=== PATIENT | male | born 1985 | race Caucasian/White ===

== ENCOUNTER 2023-05-04 08:17 | Outpatient (REF) | payer MEDICAID, SELFPAY ==
[2023-05-04 14:14] LABS: Appearance Urine Clear; Color Urine Dark Yellow; Glucose Urine UA Negative (Negative); Leukocyte Esterase Urine Negative (Negative); Nitrite Urine Negative (Negative); PH 5.5 (5.0-9.0); Specific Gravity - Urine >= 1.030 (1.005-1.025); Urine Blood Negative (Negative); Urine Ketones Trace mg/dL (Negative); Urine Protein Negative (Neg-Trace)
[2023-05-04 14:17] LABS: Bacteria Urine None Seen (None Seen); Hyaline Casts Urine 0-2 /LPF (0-2); RBC Urine 0-2 /HPF (0-2); Squamous Epithelial Cell Urine 0-2 /HPF (0-2); WBC Urine 0-5 /HPF (0-5)
[2023-05-04 14:18] LABS: MANUAL DIFF FLAG NO
[2023-05-04 14:22] LABS: Basophils Percent Auto 0.4 % (0-2); Eosinophils Absolute Auto 0.1 X10*3/uL (0.0-0.4); Eosinophils Percent Auto 2.9 % (0-4); Hematocrit 39.8 % (42.0-52.0); Hemoglobin 13.4 g/dl (14.0-18.0); Imm Gran Abs Auto 0.01 X10*3/uL (0.00-0.03); Imm Gran Pct Auto 0.2 % (0.0-0.4); Lymphocytes Absolute Auto 1.1 X10*3/uL (1.2-4.9); Lymphocytes Percent Auto 22.1 % (20-40); Mean Corpuscular HGB Conc 33.7 g/dl (31.0-36.0); Mean Corpuscular Hemoglobin 31.1 pg (27.0-33.0); Mean Corpuscular Volume 92.3 fL (80.0-98.0); Mean Platelet Volume 9.3 fL (9.4-12.4); Monocytes Absolute Auto 0.6 X10*3/uL (0.1-1.2); Monocytes Percent Auto 11.8 % (2-11); Neutrophils Percent Auto 62.6 % (45-73); Platelet Count 263 X10*3/uL (160-400); Red Blood Count 4.31 X10*6/uL (4.60-5.80); Red Cell Distribution Width 11.9 % (11.0-16.0); White Blood Count 4.9 X10*3/uL (4.8-10.8)
[2023-05-04 15:14] LABS: Anion Gap 14 (12-20); TSH reflex Free T4 1.43 uIU/mL (0.32-4.0)
[2023-05-04 15:19] LABS: Alanine Aminotransferase 18 U/L (0-40); Albumin Level 4.2 g/dL (3.5-5.0); Alkaline Phosphatase 70 U/L (39-117); Aspartate Amino Transferase 15 U/L (5-37); Bilirubin Total 0.5 mg/dL (0.0-1.0); Blood Urea Nitrogen 16 mg/dL (9-16); Calcium 9.5 mg/dL (8.4-10.2); Carbon Dioxide 24 mmol/L (22-29); Chloride 107 mmol/L (96-108); Cholesterol 135 mg/dL (<200); Estimated Glomerular Filt Rate > 60; Glucose Random 113 mg/dL (60-115); HDL Cholesterol 35 mg/dL (>40); LDL Cholesterol Calculated 91 mg/dL (<100); Potassium 3.7 mmol/L (3.3-5.1); Sodium 141 mmol/L (135-145); Total Protein 7.2 g/dL (6.5-8.0); Triglycerides 45 mg/dL (<150)
[2023-05-04 16:30] LABS: CT PCR NOT DETECTED (Not Detect.); NG PCR NOT DETECTED (Not Detect.)
[2023-05-05 04:20] LABS: Syphilis Screen Nonreactive (Nonreactive)
[2023-05-05 04:34] LABS: ~HepC Num1 0.17 S/CO (0.00-0.79); ~Hepatitis C Antibody Nonreactive (Nonreactive)
[2023-05-07 10:59] LABS: HIV RNA PCR Qn Copies Not Detected Copies/mL; HIV RNA PCR Qn Log Copies Not Detected Log cps/mL
== END 2023-05-04 08:18 | disposition home or self-care (01) ==
LOC: HO.CHCLDS 08:17
PROVIDERS: Visit Provider Internal Medicine
DX: E11.9 Type 2 diabetes mellitus without complications (principal); Z79.4 Long term (current) use of insulin
CPT/HCPCS: 0353U; 36415; 80053; 80061; 81001; 84443; 85025; 86780; 86803; 87536; 87900

== ENCOUNTER 2023-06-03 09:36 | Outpatient (REF) | payer MEDICAID, SELFPAY ==
[2023-06-03 15:38] LABS: Creatinine Urine 123.85 mg/dL; Microalbum/Creatinine Ratio Ur 4.8 ug/mg cr (<30)
== END 2023-06-03 09:37 | disposition home or self-care (01) ==
LOC: HO.CHCLDS 09:36
PROVIDERS: Visit Provider Internal Medicine
DX: E11.9 Type 2 diabetes mellitus without complications (principal); Z79.4 Long term (current) use of insulin
CPT/HCPCS: 82043; 82570

== ENCOUNTER 2023-06-17 09:12 | Emergency (ER) | payer MEDICAID, SELFPAY ==
[2023-06-17 10:01] VITALS: BP 150/90; PULSE 79; RESP 16; TEMP 35.6; O2SAT 98; BMI 28.6
[2023-06-17] MEDS: Ondansetron ODT 4 MG TAB.RAPDIS TRANSLINGU (10:07)
[2023-06-17 10:12] LABS: Glucose, Whole Blood 230 mg/dL (60-115)
[2023-06-17 10:18] LABS: MANUAL DIFF FLAG NO
[2023-06-17 10:21] LABS: Basophils Absolute Auto 0.1 X10*3/uL (0.0-0.2); Basophils Percent Auto 0.3 % (0-2); Eosinophils Absolute Auto 0.1 X10*3/uL (0.0-0.4); Eosinophils Percent Auto 0.5 % (0-4); Hematocrit 51.2 % (42.0-52.0); Hemoglobin 17.9 g/dl (14.0-18.0); Imm Gran Abs Auto 0.07 X10*3/uL (0.00-0.03); Imm Gran Pct Auto 0.5 % (0.0-0.4); Lymphocytes Absolute Auto 1.3 X10*3/uL (1.2-4.9); Lymphocytes Percent Auto 8.8 % (20-40); Mean Corpuscular Hemoglobin 31.4 pg (27.0-33.0); Mean Corpuscular Volume 89.8 fL (80.0-98.0); Mean Platelet Volume 8.9 fL (9.4-12.4); Monocytes Absolute Auto 0.6 X10*3/uL (0.1-1.2); Monocytes Percent Auto 3.8 % (2-11); Neutrophils Absolute Auto 13.1 x10*3/uL (2.0-8.3); Neutrophils Percent Auto 86.1 % (45-73); Platelet Count 236 X10*3/uL (160-400); Red Cell Distribution Width 11.7 % (11.0-16.0); White Blood Count 15.3 X10*3/uL (4.8-10.8)
[2023-06-17 10:46] LABS: Alanine Aminotransferase 21 U/L (0-40); Albumin Level 5.2 g/dL (3.5-5.0); Alkaline Phosphatase 80 U/L (39-117); Anion Gap 11 (12-20); Bilirubin Direct 0.2 mg/dL (0.0-0.5); Bilirubin Total 0.4 mg/dL (0.0-1.0); Blood Urea Nitrogen 18 mg/dL (9-16); Calcium 10.3 mg/dL (8.4-10.2); Carbon Dioxide 28 mmol/L (22-29); Chloride 105 mmol/L (96-108); Creatinine Clr Calc Pharmacy 105.7; Estimated Glomerular Filt Rate > 60; Glucose Random 244 mg/dL (60-115); Lipase 26 U/L (8-78); Potassium 5.4 mmol/L (3.3-5.1); Sodium 139 mmol/L (135-145); Total Protein 8.5 g/dL (6.5-8.0)
[2023-06-17 11:05] LABS: Aspartate Amino Transferase 15 U/L (5-37)
[2023-06-17 11:59] LABS: Beta-Hydroxybutyrate 0.13 mmol/L (0.02-0.27)
[2023-06-17 12:27] LABS: Influenza A PCR NEGATIVE (Negative); Influenza B PCR NEGATIVE (Negative); Resp Syncy Virus RNA Qual PCR NEGATIVE (Negative); SARS COV2 PCR INHOUSE NEGATIVE (Negative)
[2023-06-17 13:16] VITALS: BP 131/80; PULSE 68; RESP 16; TEMP 36.4; O2SAT 99
[2023-06-17] MEDS: 0.9 % Sodium Chloride 1,000 ML 999 ML IV (13:22)
[2023-06-17 13:32] LABS: Glucose, Whole Blood 107 mg/dL (60-115)
--- NOTE | 2023-06-17 13:48 | PC.NURSE ---
Pressure bag added to IV fluids per proivder request.
--- NOTE | 2023-06-17 13:50 | ED_ITS ---
HPI - Nausea/Vomiting/Diarrhea General Chief complaint: Abdominal Pain Stated complaint: N/D/V Time Seen by Provider: 06/17/23 13:06 Source: patient Mode of arrival: ambulatory History of Present Illness HPI Narrative: 37-year-old male who is a diabetic presents with 2 days of nausea, vomiting, crampy abdominal discomfort after having eaten questionably cooked chicken. He otherwise denies any sick contacts/sore throat/ear pain. Related Data Previous Rx's ?Medication ?Instructions ?Recorded ondansetron 4 mg disintegrating 4 mg PO Q8H PRN nausea and 06/17/23 tablet vomiting 4 days #7 tabs Allergies Allergy/AdvReac Type Severity Reaction Status Date / Time bee pollen [BEE STINGS] Allergy Unknown SWELLING Verified 06/17/23 10:04 BEE STINGS Allergy Unknown Swelling Uncoded 06/17/23 10:04 Review of Systems 2 Review of Systems: Pertinent positives and negatives as stated in HPI PMFSH Past Medical History Source: nursing notes reviewed Social History Social History Alcohol intake: former Smoked in Last 30 Days: Yes Substance Use Type: Marijuana Substance Use Frequency: Occasionally Advance Directives: No Advance Directives Information Provided: No Physical Exam 2 Vital Signs: Vital Signs: Last Vital Signs Temp 97.5 F 06/17/23 13:16 Pulse 68 06/17/23 13:16 Resp 16 06/17/23 13:16 BP 131/80 06/17/23 13:16 Pulse Ox 99 06/17/23 13:16 O2 Del Method Room Air 06/17/23 13:16 BMI result Body Mass Index 28.6 VITAL SIGNS: Reviewed. GENERAL: Well developed, well nourished, in no acute distress. HEAD: Normocephalic/atraumatic EYES: PERRLA, EOMI EARS: Ext canals without abnormality NOSE: Nares patent bilateral OROPHARYNX: no oral lesions noted, posterior pharynx clear and non-erythematous without noted tonsillar enlargement/erythema/exudates, dry mucosa NECK: Supple, no adenopathy LUNGS: Normal breath sounds. No adventitious sounds or accessory muscle use. SpO2<99> CARDIOVASCULAR: Regular rate and rhythm without noted murmurs ABDOMEN: Soft, non-tender, non-distended with bowel sounds. MUSCULOSKELETAL: No tenderness, deformities, or effusions noted on gross inspection. EXTREMITIES: No cyanosis, clubbing or edema. SKIN: Inspection of the skin reveals no rashes NEUROLOGIC: Alert and oriented x 4. Strength and sensation to light touch were grossly intact x 4. Medications Administered Discontinued Medications Generic Name Dose Route Start Last Admin Trade Name Freq PRN Reason Stop Dose Admin Sodium Chloride 1,000 mls @ 999 mls/hr 06/17/23 13:15 06/17/23 14:22 Ns IV 06/17/23 14:15 Infused .Q1H1M JOSE LUIS Infusion Ondansetron HCl 4 mg 06/17/23 10:05 06/17/23 10:07 Ondansetron Odt 4 Mg Tab.Rapdis TRANSLINGU 06/17/23 10:06 4 mg ONCE ONE Administration Medical Decision Making Medical Decision Making [facility] Narrative: 37-year-old male with history and clinical presentation, DDX: Food poisoning, viral gastroenteritis, dehydration, no clinical suspicion for HHS/DKA I reviewed all investigations and hematologic indices demonstrates a noninfectious leukocytosis without anemia or thrombocytopenia. My interpretation is that patient's lab work overall appears to be hemoconcentrated likely secondary to component of dehydration. Chemistries indices initially demonstrated an elevated potassium level but no VANESSA there is noted hyperglycemia without evidence of DKA or HHS. Beta hydroxybutyrate not elevated. Repeat chemistries demonstrate resolution of potassium level after 1 L of IV fluids and antiemetics. 1554: Patient re-evaluated and feeling much better and ready to be discharged. Unable to obtain stool sample. Differential Diagnosis Differential Diagnoses: The differential diagnosis associated with the presentation includes Please see the discussion above Admission/Observation Consideration of admission/observation: Escalation of care including admission/observation considered Please see the discussion above Lab Data [facility] Lab Attestation statement: I reviewed the patient's lab results. Please see the discussion above 06/17/23 10:13 06/17/23 15:06 Labs: Lab Results 06/17/23 06/17/23 06/17/23 Range/Units 10:09 10:13 11:29 WBC 15.3 H (4.8-10.8) X10*3/uL RBC 5.70 D (4.60-5.80) X10*6/uL Hgb 17.9 D (14.0-18.0) g/dl Hct 51.2 D (42.0-52.0) % MCV 89.8 (80.0-98.0) fL MCH 31.4 (27.0-33.0) pg MCHC 35.0 (31.0-36.0) g/dl RDW 11.7 (11.0-16.0) % Plt Count 236 (160-400) X10*3/uL MPV 8.9 L (9.4-12.4) fL Immature Gran % (Auto) 0.5 H (0.0-0.4) % Neut % (Auto) 86.1 H (45-73) % Lymph % (Auto) 8.8 L (20-40) % [place] % (Auto) 3.8 (2-11) % Eos % (Auto) 0.5 (0-4) % Baso % (Auto) 0.3 (0-2) % Lymph # (Auto) 1.3 (1.2-4.9) X10*3/uL [place] # (Auto) 0.6 (0.1-1.2) X10*3/uL Eos # (Auto) 0.1 (0.0-0.4) X10*3/uL Baso # (Auto) 0.1 (0.0-0.2) X10*3/uL Abs Immat Gran (auto) 0.07 H (0.00-0.03) X10*3/uL Absolute Neuts (auto) 13.1 H (2.0-8.3) x10*3/uL Absolute Nucleated RBC 0.000 (0.0-0.012) X10*3/uL Nucleated RBC % (auto) 0.0 (0.0-0.2) /100WBC Sodium 139 (135-145) mmol/L Potassium 5.4 H D (3.3-5.1) mmol/L Chloride 105 (96-108) mmol/L Carbon Dioxide 28 (22-29) mmol/L Anion Gap 11 L (12-20) BUN 18 H (9-16) mg/dL Creatinine 0.89 (0.5-1.4) mg/dL Estim Creat Clear Calc 105.7 Estimated GFR > 60 POC Glucose 230 H (60-115) mg/dL Random Glucose 244 H (60-115) mg/dL Calcium 10.3 H D (8.4-10.2) mg/dL Total Bilirubin 0.4 (0.0-1.0) mg/dL Direct Bilirubin 0.2 (0.0-0.5) mg/dL AST 15 (5-37) U/L ALT 21 (0-40) U/L Alkaline Phosphatase 80 (39-117) U/L Total Protein 8.5 H (6.5-8.0) g/dL Albumin 5.2 H (3.5-5.0) g/dL Lipase 26 (8-78) U/L Beta-Hydroxybutyrate 0.13 (0.02-0.27) mmol/L Influenza Type A (PCR) NEGATIVE (Negative) Influenza Type B (PCR) NEGATIVE (Negative) RSV RNA Qual (PCR) NEGATIVE (Negative) SARS-CoV-2 RNA (RT-PCR) NEGATIVE (Negative) 06/17/23 06/17/23 Range/Units 13:24 15:06 WBC (4.8-10.8) X10*3/uL RBC (4.60-5.80) X10*6/uL Hgb (14.0-18.0) g/dl Hct (42.0-52.0) % MCV (80.0-98.0) fL MCH (27.0-33.0) pg MCHC (31.0-36.0) g/dl RDW (11.0-16.0) % Plt Count (160-400) X10*3/uL MPV (9.4-12.4) fL Immature Gran % (Auto) (0.0-0.4) % Neut % (Auto) (45-73) % Lymph % (Auto) (20-40) % [place] % (Auto) (2-11) % Eos % (Auto) (0-4) % Baso % (Auto) (0-2) % Lymph # (Auto) (1.2-4.9) X10*3/uL [place] # (Auto) (0.1-1.2) X10*3/uL Eos # (Auto) (0.0-0.4) X10*3/uL Baso # (Auto) (0.0-0.2) X10*3/uL Abs Immat Gran (auto) (0.00-0.03) X10*3/uL Absolute Neuts (auto) (2.0-8.3) x10*3/uL Absolute Nucleated RBC (0.0-0.012) X10*3/uL Nucleated RBC % (auto) (0.0-0.2) /100WBC Sodium 140 (135-145) mmol/L Potassium 4.6 (3.3-5.1) mmol/L Chloride 109 H (96-108) mmol/L Carbon Dioxide 24 (22-29) mmol/L Anion Gap 12 (12-20) BUN 15 (9-16) mg/dL Creatinine 0.80 (0.5-1.4) mg/dL Estim Creat Clear Calc 117.5 Estimated GFR > 60 POC Glucose 107 (60-115) mg/dL Random Glucose 108 (60-115) mg/dL Calcium 8.9 D (8.4-10.2) mg/dL Total Bilirubin (0.0-1.0) mg/dL Direct Bilirubin (0.0-0.5) mg/dL AST (5-37) U/L ALT (0-40) U/L Alkaline Phosphatase (39-117) U/L Total Protein (6.5-8.0) g/dL Albumin (3.5-5.0) g/dL Lipase (8-78) U/L Beta-Hydroxybutyrate (0.02-0.27) mmol/L Influenza Type A (PCR) (Negative) Influenza Type B (PCR) (Negative) RSV RNA Qual (PCR) (Negative) SARS-CoV-2 RNA (RT-PCR) (Negative) External Record Review External record reviewed: Outpatient record and Prior outpatient labs Chronic Conditions Patient?s care impacted by: Diabetes Critical Care Time Critical Care Time Critical Care Time: Yes Total Critical Care Time: 45 Attestation: I personally attest to this time spent taking care of the patient. Discharge Plan Discharge Clinical Impression: Dehydration, Gastroenteritis, Food poisoning Patient Disposition: Home, Self-Care Instructions: Dehydration (ED), Gastroenteritis (ED), Nutrition Tips for Relief of Diarrhea (ED) Additional Instructions: 1. Continue to stay well hydrated, a prescription for antinausea medication has been sent to your pharmacy. 2. Would stick to a bland diet until your stomach is feeling better. 3. Please follow-up with your primary care doctor. Return to the ER for any worsening symptoms. Prescriptions: New ondansetron 4 mg tablet,disintegrating 4 mg PO Q8H PRN (Reason: nausea and vomiting) 4 Days Qty: 7 0RF Print Language: Albanian
[2023-06-17 15:36] LABS: Anion Gap 12 (12-20); Blood Urea Nitrogen 15 mg/dL (9-16); Calcium 8.9 mg/dL (8.4-10.2); Carbon Dioxide 24 mmol/L (22-29); Chloride 109 mmol/L (96-108); Creatinine Clr Calc Pharmacy 117.5; Estimated Glomerular Filt Rate > 60; Glucose Random 108 mg/dL (60-115); Potassium 4.6 mmol/L (3.3-5.1); Sodium 140 mmol/L (135-145)
[2023-06-17 16:26] VITALS: BP 118/77; PULSE 84; RESP 16; TEMP 36.8; O2SAT 96
== END 2023-06-17 16:27 | disposition home or self-care (01) ==
PROVIDERS: Physician Assistant Medical; Emergency Provider Student in an Organized Health Care Education/Training Program
DX: E86.0 Dehydration (principal); K52.9 Noninfective gastroenteritis and colitis, unspecified; A05.9 Bacterial foodborne intoxication, unspecified; Z11.52 Encounter for screening for COVID-19; Z20.828 Contact with and (suspected) exposure to other viral communicable diseases
CPT/HCPCS: 0241U; 36415; 80048; 80076; 82010; 82947; 83690; 85025; 96360; 99284

== ENCOUNTER 2023-07-24 16:08 | Emergency (ER) | payer MEDICAID, SELFPAY ==
[2023-07-24 16:56] VITALS: BP 123/57; PULSE 70; RESP 16; TEMP 36.1; O2SAT 97; BMI 28.9
--- NOTE | 2023-07-24 17:43 | ED.GENADULT ---
HPI - General Adult General Chief complaint: Wound/Laceration Stated complaint: left hand cut History of Present Illness HPI narrative: patient left without completion of treatment by ED provider. Related Data Previous Rx's ?Medication ?Instructions ?Recorded ondansetron 4 mg disintegrating 4 mg PO Q8H PRN nausea and 06/17/23 tablet vomiting 4 days #7 tabs Allergies Allergy/AdvReac Type Severity Reaction Status Date / Time bee pollen [BEE STINGS] Allergy Unknown SWELLING Verified 07/24/23 16:57 BEE STINGS Allergy Unknown Swelling Uncoded 07/24/23 16:57 PMFSH Social History Social History Alcohol intake: former Substance Use Type: Marijuana Advance Directives: No Advance Directives Information Provided: No Physical Exam ED Vital Signs: Vital Signs - 24 hr 07/24/23 16:56 Temperature 97.0 F Pulse Rate 70 Respiratory Rate 16 Blood Pressure 123/57 L Pulse Oximetry 97 Oxygen Delivery Method Room Air BMI result Body Mass Index 28.9 Course Course Course Narrative: RME: Done by EVARISTO Gilliam 38 yold male presents to the ED for left hand palm laceration while doing yard work. may need sutures. Discharge Plan Discharge Clinical Impression: Laceration Patient Disposition: Left W/O Completing Treatment Prescriptions: No Action ondansetron 4 mg tablet,disintegrating 4 mg PO Q8H PRN (Reason: nausea and vomiting) 4 Days Qty: 7 0RF Discharge Date/Time: 07/25/23 00:03
== END 2023-07-25 00:03 | disposition left against medical advice (07) ==
LOC: HO.ED 07-25
PROVIDERS: Emergency Provider Emergency Medicine
DX: S61.412A Laceration without foreign body of left hand, initial encounter (principal); X58.XXXA Exposure to other specified factors, initial encounter; Y93.9 Activity, unspecified; Y92.9 Unspecified place or not applicable; Y99.9 Unspecified external cause status
CPT/HCPCS: 99281

== ENCOUNTER 2023-09-29 15:54 | Outpatient (REF) | payer MEDICAID, SELFPAY ==
--- NOTE | ~2023-09-29 | XR_ITS ---
EXAMINATION: XR HAND, LEFT CLINICAL INFORMATION: Left fourth digit cystlike lesion. COMPARISON: None available. TECHNIQUE: PA, lateral, and oblique views of the left hand. FINDINGS: The bones and soft tissues are normal. No fracture. Alignment is anatomic. Joint spaces are maintained. There is soft tissue prominence involving the radial aspect of the mid fourth digit, overlying the middle phalanx. No associated calcification or bony abnormalities. XR/XR hand LT min 3V IMPRESSION: -No acute osseous abnormalities. -Soft tissue prominence fourth digit radial aspect overlying the lateral middle phalanx. Electronically signed by: Robin Atkinson MD 11/25/2023 04:12 PM EDT
== END 2023-09-29 15:55 | disposition home or self-care (01) ==
LOC: HO.HMGCX 15:54
PROVIDERS: PCP Internal Medicine; Visit Provider Internal Medicine
DX: M79.642 Pain in left hand (principal)
CPT/HCPCS: 73130

== ENCOUNTER → 2023-09-29 15:57 | Outpatient (BNV) | payer MEDICAID, SELFPAY | PROVIDERS: PCP Internal Medicine; Visit Provider Radiology Diagnostic Radiology | DX: M79.642 Pain in left hand (principal) | CPT/HCPCS: 73130 ==

== ENCOUNTER 2023-10-28 15:39 | Outpatient (REF) | payer MEDICAID, SELFPAY ==
[2023-10-28 16:14] LABS: MANUAL DIFF FLAG NO
[2023-10-28 16:22] LABS: Basophils Percent Auto 0.1 % (0-2); Eosinophils Absolute Auto 0.3 X10*3/uL (0.0-0.4); Eosinophils Percent Auto 3.7 % (0-4); Hematocrit 42.7 % (42.0-52.0); Hemoglobin 14.7 g/dl (14.0-18.0); Imm Gran Abs Auto 0.02 X10*3/uL (0.00-0.03); Imm Gran Pct Auto 0.3 % (0.0-0.4); Lymphocytes Percent Auto 26.2 % (20-40); Mean Corpuscular HGB Conc 34.4 g/dl (31.0-36.0); Mean Corpuscular Volume 90.1 fL (80.0-98.0); Mean Platelet Volume 9.6 fL (9.4-12.4); Monocytes Absolute Auto 0.4 X10*3/uL (0.1-1.2); Monocytes Percent Auto 5.5 % (2-11); Neutrophils Percent Auto 64.2 % (45-73); Platelet Count 190 X10*3/uL (160-400); Red Blood Count 4.74 X10*6/uL (4.60-5.80); Red Cell Distribution Width 11.9 % (11.0-16.0); White Blood Count 7.8 X10*3/uL (4.8-10.8)
[2023-10-28 16:50] LABS: C Reactive Protein 0.13 mg/dL (< or = 0.50); Uric Acid 6.4 mg/dL (3.4-7.0)
== END 2023-10-28 15:40 | disposition home or self-care (01) ==
LOC: HO.HHCL 15:39
PROVIDERS: Visit Provider Family Medicine
DX: M25.472 Effusion, left ankle (principal)
CPT/HCPCS: 36415; 84550; 85025; 86140

== ENCOUNTER 2025-01-09 08:56 | Outpatient (AMB) | payer OTHER, SELFPAY ==
[2025-01-09 09:38] VITALS: BMI 27.5
--- NOTE | 2025-01-09 09:38 | A.OFFVIS_ITS ---
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 States he has had this for the last 2 years and had gradually increase in size. States this cause him no pain just discomfort. He wouldlike to discuss aspiration vs surgical intervention. 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 States he has had this for the last 2 years and had gradually increase in size. States this cause him no pain just discomfort. He wouldlike to discuss aspiration vs surgical intervention. He reports having a mass on the left ring finger. Notes that he started small and then increased in size. Denies any pain. He notes that he is a diabetic and he is not taking insulin. Notes that he has not checked his A1c in a while. Notes that he is managing his diabetes with diet and exercise. 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 Physical Exam Vital Signs: BMI result Body Mass Index 27.5 Const General: cooperative, healthy appearing and no acute distress Orientation/consciousness: oriented to person and oriented to place HEENT Head: Yes normocephalic and Yes atraumatic Eyes EOM: EOMs intact bilaterally Resp Effort & Inspection: normal respiratory effort and able to speak in complete sentences Cardio Jugular venous distension: no JVD Skin General skin exam: turgor normal Rashes: no rashes Neuro General: oriented to person and oriented to place Extrem Other: Evaluation of left Upper Extremity: Neuro: Median, ulnar, radial nerves motor and sensory intact. Vascular: Cap refill brisk. ROM: Can bring fingers closed to a fist and back out to full extension. No locking or catching Skin: No lacerations or abrasions. General: No eccymosis. No erythema or evidence of infection. He has a soft tissue mass over the radial aspect of the left ring finger middle phalanx. It does extend from the dorsal midline well into the volar side of the digit. It is about the length of the middle phalanx, about 2.5 cm in length, It is completely nontender to palpation It does not affect finger range of motion There are no overlying skin changes Radiographs: Three views of the left hand taken on 09/29/2023 were reviewed by me today in clinic and show no fractures or dislocations. I do not see any involvement of the bone by this mass. Psych Appearance: grossly normal Affect: normal affect Attitude: cooperative Assessment & Plan Assessment & Plan (1) Finger mass, right: Comment: ring finger Code(s): R22.31 - Localized swelling, mass and lump, right upper limb Category: Medical Plan 1. left ring finger soft tissue mass Radial aspect of middle phalanx extending from dorsal midline around to the volar side of the finger I educated him about this condition I discussed operative and non-operative treatment options The patient would like to proceed with surgery The risks and benefits of operative treatment were discussed with the patient and the patient wishes to proceed with surgery. These risks include, but are not limited to risk of damage to blood vessels, nerves, tendons, infection, recurrence, incomplete relief of preoperative symptoms, persistent pain, possible need for further surgery and the risks associated with regional blocks and anesthesia. The plan is to take the patient to the operating room sometime in the next few weeks for the following procedures: 1. left ring finger excision of soft tissue mass under general anesthesia All of the preoperative paperwork including the consent was filled out today. All the patient's questions were answered. The patient understands that they will be contacted by our showroom salesperson soon to schedule this procedure He has a hx of Diabetes. Had a A1c of 12.7 in 2019. He reports getting frustrated working with doctors to lower his a1c. He notes that he controls his diabetes with diet and exercise. I explained to him that he needs to follow up with his PCP and have his A1c check before scheduling surgery. Advised that his a1c needs to be under 8 to proceed. Denies blood thinners, asthma, heart, lung, kidney issues Scribed for Geni Mooney MD by Jazmyne Almanzar, medical records manager, on 01/09/25 at 10:04 AM, EST. Medications: Discontinued ondansetron Discontinued Reason: Patient Completed Course 4 mg PO Q8H 4 days PRN 7 tabs 0RF nausea and vomiting Coding Level of Care Code New Pt Level 4 (05389) Diagnoses Finger mass, right R22.31
--- OUTSIDE RECORDS SUMMARY | 2025-01-09 16:35 | XMS_ITS | Clinical Summary ---
Author Organization [employer] Address [address] [facility] 7t [place] [address] Care Team Providers Care Rider Ticket Worker Name Role Phone Eliseo Redmond MD Primary Care Prov ider Allergies Active Allergy Reactions Criticality Noted Date Comments Bee Venom 06/15/2018 Medications Continuous Glucose Cartridge Belt Puncher (FreeStyle Ced 2 [place]) device Scan sensor every 8 hours 1 each 4 Active Blood Pressure kit 1 kit Once per day. 1 kit 4 Active Continuous Glucose Sensor (FreeStyle Ced 2 Sensor) [facility] Apply 1 sensor every 14 days 2 each 11 4 Active docusate sodium (Colace) 100 MG capsuleIndication s:Constipation, unspecified constipation type Take 1 capsule (100 mg) by mouth if needed in the morning and at bedtime for constipation. 60 capsule 2 5 03/07/19 26 Active hydrocortisone (Anusol-HC) 2.5 % rectal creamIndications: Rectal prolapse Apply rectally 2 times daily (start with outer area) for 7 days 28 g 1 5 12/08/19 26 Active Active Problems Problem Noted Date Diagnosed Date Digital mucinous cyst of finger 11/23/2024 Assessment & Plan (11/23/2024 3:27 PM EDT): Left 4th finger cyst, will refer to hand surgery for evaluation Left ankle swelling 10/28/2023 Assessment & Plan (10/28/2023 3:29 PM EDT): Differential includes gout versus infectious process. No fevers or wounds around the swollen area. -discussed ordering uric acid, CRP, and CBC to check for gout. -will prescribing Augmentin empirically to treat. -ordered XR of left foot. -ER precautions given. Left hand pain 09/29/2023 Assessment & Plan (09/29/2023 9:17 AM EDT): Will send a hand xray, structure in 4th finger seems like a cyst, not tender, no fluid collection Hospital discharge follow-up 09/06/2023 Type 2 diabetes mellitus wit hout complication, with long-term current use of insulin 06/03/2023 Assessment & Plan (09/06/2023 8:40 AM EDT): Recently diagnosed, continue lantus and lispro insulin, will send cgm, keep low carb/no sugar diet, exercise and weight loss encouraged. Follow up in 1 month with new labs Assessment & Plan (07/19/2023 2:19 PM EDT): Patient has been addressing his diet, his A1c from cgm is 6.2, he has not been using insulin for over 3 weeks, trulicity caused upset stomach and bloating, will discontinue medication and follow up in 2 months, call back if numbers are above 150 Assessment & Plan (06/03/2023 9:35 AM EDT): On lantus and short acting insulin, will start on trulicity, follow up in 6 weeks, he has been adhering to diet. Will send CBG monitor He will book an appointment for eye exam Elevated blood pressure reading 06/03/2023 Assessment & Plan (07/19/2023 2:09 PM EDT): Patient has not been monitoring his blood pressure, new bp monitor will be ordered Assessment & Plan (06/03/2023 9:34 AM EDT): Today is stable, he has not been monitoring his bp, told to keep a low sodium diet and exercise as tolerated Encounters Date Type Department Care Team Description 12/07/2024 11:20 AM EDT Office Visit [facility] [address] [address] Kenn Woods MD Constipation, unspecified constipation type (Primary Dx); Rectal prolapse 12/07/2024 Travel 12/07/2024 Telephone [facility] [address] [place] [phone] Eliseo Redmond MD Nurse Triage 11/23/2024 8:45 AM EDT Telemedicine [facility] [address] [place] [address] Eliseo Redmond MD Digital mucinous cyst of finger (Primary Dx) 11/23/2024 Telephone [facility] [address] [place] [address] Eliseo Redmond MD 11/23/2024 Travel 11/22/2024 Telephone [facility] [address] [place] [address] Eliseo Redmond MD chart prep 11/21/[address] [address] Eliseo Redmond MD Referral 11/21/[address] [address] Eliseo Redmond MD Results from Last 3 Months Social History Tobacco Use Types Packs/Day Years Used Date Smoking Tobacco: Every Day Cigarettes Passive Smoke Exposure: Current Smokeless Tobacco: Never Tobacco Cessation:Ready to Q uit: Not Asked; Counseling Given: Not Answered Depression Answer Date Recorded Patient Health Questionnaire-9 Score 0 05/03/2023 Patient Health Questionnaire-9 Score 0 05/03/2023 Last PHQ-9: Questionnaire Data Not on file 0 05/03/2023 Housing Stability Answer Date Recorded What is your housing situation today? I have sugar gutiérrez 05/03/[address] you li ve. Do you have problems with any of the following? None of the above 05/03/2023 Food Insecurity Answer Date Recorded Within the past 12 months, y ou worried that your food would run out before you got money to buy more: Never True 05/03/2023 Within the past 12 months,th e food you bought just didn't last and you didn't have enough money to get more: Never True 01/2024 Transportation Answer Date Recorded In the past 12 months, has l ack of transportation kept you from medical appts, meetings, work or from getting things needed for daily living? No 05/03/2023 Utilities Answer Date Recorded In the past 12 months, has t he electric, gas, oil or water company threatened to shut off services in your home? No 05/03/2023 Depression Answer Date Recorded Patient Health Questionnaire-2 Score 0 05/03/2023 Sex and Gender Information Value Date Recorded Sex Assigned at Male 12/21/2021 10:35 AM EDT Legal Sex Male 4:14 PM EDT Gender Identity Choose not to disclose 10:35 AM EDT Sexual Orientation Choose not to disclose 2021 10:35 AM EDT Last Filed Vital Signs Vital Sign Reading Time Taken Comments Blood Pressure 129/79 12/07/2024 10:43 AM EDT Pulse 82 12/07/2024 10:43 AM EDT Temperature 37.1 C (98.8 F) 12/07/2024 10:43 AM EDT Respiratory Rate 16 12/07/2024 10:43 AM EDT Oxygen Saturation 98% 12/07/2024 10:43 AM EDT Inhaled Oxygen Concentration - - Weight 75.9 kg (167 lb 4 oz) 12/07/2024 10:43 AM EDT Height 165.1 cm (5' 5 ) 12/07/2024 10:43 AM EDT Body Mass Index 27.83 12/07/2024 10:43 AM EDT Plan of Treatment Health Maintenance Due Date Last Done Comments Dental Oral Exam 1985 Dental Prophylaxis 1985 Dental X-Ray: Bitewings 1985 Dental X-Ray: Full Mouth 1985 Disability Screening 1985 Eye Exam 06/22/1995 Alcohol/Substance Use Screening 1997 Family Planning (PISQ) 2000 HPV Vaccines (1 - 3-dose series) 2000 Hepatitis B Vaccines (1 of 3 - 19+ 3-dose series) 2004 Pneumococcal Vaccine: Pediatrics (0 to 5 Years) and At-Risk Patients (6 to 49) Years (2 of 2 - PCV) 07/20/2019 07/19/2018 Diabetes: Hemoglobin A1C 03/31/2024 09/29/2023, 05/22 Depression Screening 05/02/2024 05/03/2023, 05/03/19 SDOH Screening 05/02/2024 05/03/2023 Lipid Panel 05/03/2024 05/04/2023, 04/15/2021 Diabetes: Foot Exam 06/02/2024 06/03/2023, 06/03/2023, 06/03/2023, Additional history exists Diabetes: Urine Protein Screening 06/02/2024 06/03/2023, 04/15/2021 COVID-19 Vaccine ( - season) 2024 Influenza Vaccine (#1) 2024 Tobacco Screening 12/07/2025 12/07/2024 DTaP/Tdap/Td Vaccines (2 - Td or Tdap) 07/19/2028 07/19/2018 Zoster Vaccines (1 of 2) 06/22/2035 RSV Patients and Patients Aged 60 years or older (1 - 1-dose 75+ series) 2060 HIV Screening Completed 04/15/2021 Hepatitis C Screening Completed 05/04/2023, 022 HIB Vaccines Aged Out No longer eligi ble based on patient's age to complete this topic Hepatitis A Vaccines Aged Out No long er eligible based on patient's age to complete this topic IPV Vaccines Aged Out No longer eligi ble based on patient's age to complete this topic Meningococcal B Vaccine Aged Out No l onger eligible based on patient's age to complete this topic Meningococcal Vaccine Aged Out No urban edilberto eligible based on patient's age to complete this topic RSV under 20 months Aged Out No longe r eligible based on patient's age to complete this topic Rotavirus Vaccines Aged Out No longer eligible based on patient's age to complete this topic Procedures Procedure Name Priority Date/Time Associated Diagnosis Comments POCT GLYCATED HEMOGLOBIN, TOTAL Routine 09/29/2023 9:00 AM EDT Type 2 diabetes mellitus without complication, with long-term current use of insulin ([facility]) ALBUMIN, RANDOM URINE W/CREATININE Routine 06/03/2023 9:37 AM EDT Fall, subsequent encounter HEPATITIS C AB W/REFL TO HCV RNA, QN, PCR Routine 05/04/2023 8:22 AM EDT Type 2 diabetes mellitus without complication, with long-term current use of insulin (CMS/HCC) LIPID PANEL, STANDARD Routine 05/04/2023 8:22 AM EDT Type 2 diabetes mellitus without complication, with long-term current use of insulin (CMS/HCC) HIV 1/2 ANTIGEN/ANTIBODY, FOURTH GENERATION W/RFL Routine 04/15/2021 8:38 AM EST from Last 3 Months or Most Recently Relevant to Health Maintenance Results * (ABNORMAL) POCT HGB A1C (09/29/2023 9:00 AM EDT) Hemoglobin A1C 6.1(A) 4.0 - 6.0 % QC Media Lot # [id number] Lot# Expiration Date Blood 09/29/2023 9:00 AM EDT us Eliseo Wright MD POINT OF CARE TEST ENTER/EDIT ORDERABLES Final Result * Albumin, Random Urine W/Creatinine (06/03/2023 9:37 AM EDT) Creatinine, Urine 123.85 mg/dL [facility] Microalbumin Urine 6.0 mg/L [facility] Microalbum Creatinine Ratio Ur 4.8 <30 ug/mg cr [facility] Comment:Albumin/Creatinine R atio Reference Ranges: Normal: < 30 ug/mg creatinine Microalbuminuria: 30 - 300 ug/mg creatinineClinical Albuminuria: > 300 ug/mg creatinine 06/03/2023 9:37 AM EDT 06/03/2023 2:30 PM EDT us Eliseo Wright MD LAB URINE ORDERABL ES Final Result [facility] [address] [place] [phone] * Hepatitis C Antibody with Reflex to HCV, RNA, Quantitative, Real-Time PCR (05/04/2023 8:22 AM EDT) Hepatitis C Antibody Nonreactive Nonreactive [facility] Comment:Antibodies to HCV no t detected; does not exclude early acuteHCV infection. Blood Venous blood specimen / Unknown 05/04/2023 8:22 AM EDT 05/04/2023 2:10 PM EDT Eliseo Wright MD LAB BLOOD ORDERABL ES Final Result [facility] [address] [place] [phone] * (ABNORMAL) Lipid Panel, Standard (05/04/2023 8:22 AM EDT) Triglycerides 45 <150 mg/dL [facility] Comment:Desirable Triglyceri de: less than 150 mg/dLBorderline High Triglyceride 150-199 mg/dLHigh Triglyceride: 200-499 mg/dLVery High Triglyceride: greater than or equal to 5OO mg/dL Cholesterol 135 <200 mg/dL [facility] Comment:Desirable Cholestero l: less than 200 mg/dLBorderline High Cholesterol: 200-239 mg/dLHigh Cholesterol: greater than 239 mg/dL LDL Cholesterol Calculated 91 <100 mg/dL [facility] Comment:Desirable LDL: less than 100 mg/dLNear Optimal/Above Optimal LDL: 110- 129 mg/dLBorderline High LDL: 130-159 mg/dLHigh LDL: 160-189 mg/dLVery High LDL: greater than or equal to 190 mg/dL HDL Cholesterol 35(L) >40 mg/dL [facility] Comment:Desirable HDL: great er than 40 mg/dL Note: This HDL assay may give artificially low results in patients with liver disease. Blood Venous blood specimen / Unknown 05/04/2023 8:22 AM EDT 05/04/2023 2:10 PM EDT us Eliseo Wright MD LAB BLOOD ORDERABL ES Final Result [facility] [address] [place] [phone] [phone] * HIV 1/2 ANTIGEN/ANTIBODY,FOURTH GENERATION W/RFL (04/15/2021 8:38 AM EST) HIV-1/2 ANTIGEN AND ANTIBODIES, 4TH GENERATION W/ REFLEX NON-REACT [facility] NON-[facility]ACT [facility] Comment: HIV-1 antigen and HIV-1/HIV-2 antibodies were not detected. There is no laboratory evidence of HIV infection. PLEASE NOTE: This information has been disclosed to you from records whose confidentiality may be protected by state law. If your state requires such protection, then the state law prohibits you from making any further disclosure of the information without the specific written consent of the person to whom it pertains, or as otherwise permitted by law. A general authorization for the release of medical or other information is NOT sufficient for this purpose. For additional information please refer to http://[employer]faq/BAX185 (This link is being provided for informational/ educational purposes only.) The performance of this assay has not been clinically validated in patients less than 2 years old. HIV-1/2 ANTIGEN AND ANTIBODIES, 4TH GENERATION W/ REFLEX NON-REACT [facility] NON-[facility]ACT [facility] Comment: HIV-1 antigen and HIV-1/HIV-2 antibodies were not detected. There is no laboratory evidence of HIV infection. PLEASE NOTE: This information has been disclosed to you from records whose confidentiality may be protected by state law. If your state requires such protection, then the state law prohibits you from making any further disclosure of the information without the specific written consent of the person to whom it pertains, or as otherwise permitted by law. A general authorization for the release of medical or other information is NOT sufficient for this purpose. For additional information please refer to http://[employer]faq/DSR632 (This link is being provided for informational/ educational purposes only.) The performance of this assay has not been clinically validated in patients less than 2 years old. 04/15/2021 8:38 AM EST us Baljit Rebollar MD LAB BLOOD ORDERABLES Final Resul t [facility] [address] from Last 3 Months or Most Recently Relevant to Health Maintenance Insurance [facility] STAND ADULT # 2 [place] [id number] Eladia # 2 [place] [id number] Care Teams Rider Ticket Worker Relationship Specialty Start Date End Date DiehlEliseo Turner MD [address] [place] [address] [place] [phone] PCP - General Internal Medicine 07/02/19
--- OUTSIDE RECORDS SUMMARY | 2025-01-09 16:35 | XMS_ITS | Encounter Summary ---
Author Organization [employer] Address [address] [place] [address] 7 [place] [address] Care Team Providers Care Corporate Traffic Manager Name Role Phone Eliseo Redmond MD Primary Care Prov ider Reason for Visit * Reason Onset Date Comments Hospital Follow-up 04/26/2023 Encounter Details Date Type Department Care Team (Late st Contact Info) Description 04/26/2023 Telephone [facility] [address] [place] [address] Eliseo Redmond MD [address] [place], [place] [phone] Hospital Follow-up Social History Tobacco Use Types Packs/Day Years Used Date Smoking Tobacco: Never Assessed Sex and Gender Information Value Date Recorded Sex Assigned at Male 12/21/2021 10:35 AM EDT Legal Sex Male 4:14 PM EDT Gender Identity Choose not to disclose 10:35 AM EDT Sexual Orientation Choose not to disclose 2021 10:35 AM EDT documented as of this encounter Miscellaneous Notes * Telephone Encounter - Mp Villalba - 04/26/2023 1:53 PM EST Tc from pt requesting a HDF appt. Hospital: [facility] Date of admission: 04/24/23 Discharge date: 04/26/23 Diagnosed: Head injury documented in this encounter Plan of Treatment Not on file documented as of this encounter Visit Diagnoses Not on filedocumented in this encounter Care Teams Corporate Traffic Manager Relationship Specialty Start Date End Date Eliseo Redmond MD [address] [place], [place] [phone] PCP - General Internal Medicine 07/02/19 documented as of this encounter
== END 2025-01-09 10:35 | disposition home or self-care (01) ==
LOC: HO.HOS 08:56
PROVIDERS: PCP Internal Medicine; Visit Provider Orthopaedic Surgery
DX: R22.31 Localized swelling, mass and lump, right upper limb (principal)
CPT/HCPCS: 99204

== ENCOUNTER 2025-01-16 10:41 | Outpatient (AMB) | payer OTHER, SELFPAY ==
--- NOTE | 2025-01-16 10:45 | MHC.OFFVIS ---
Vital Signs 01/16/25 10:46 Height 5 ft 5 in Weight 160 lb 2 oz BMI 26.6 Intake Visit Reasons: Rectal prolapse Intake Note: This patient presents for an assessment for rectal prolapse. Pt c/o; reports Hx constipaiton, he reports no longer has pain and the rectal bleeding is minimal. His pcp prescribed colace for constipation and Anusol-HC cream to apply on the area, he had never had a colonoscopy before. Hay Buckler Required: No Accompanied by: Self / Same As Patient Allergies bee pollen (BEE STINGS) Allergy (Unknown, Verified 01/16/25 10:54) SWELLING BEE STINGS Allergy (Unknown, Uncoded 01/16/25 10:54) Swelling Medication List - Last Reconciled 01/16/25 by Adarsh Spangler MD docusate sodium 100 mg PO hydrocortisone 2.5% (Proctosol HC) VT BID HPI HPI Rectal prolapse: Details: [age] year-old male referred for hemorrhoid issues. He says he went to the urgent care center about 3 weeks ago because of what he describes was pain, swelling and bleeding from his hemorrhoids. He says that he has hemorrhoids were ?out? and swollen around that time He has had hemorrhoids for many years. He said he would periodically note his hemorrhoids to be painful and swollen with some bleeding. He says that he often has to push his hemorrhoids back in. 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 Review of Systems Const Denies chills and Denies fever(s) Card Denies chest pain, Denies dyspnea and Denies dyspnea on exertion Resp Denies cough, Denies dyspnea and Denies dyspnea on exertion GI Reports hematochezia and Reports change in bowel habits Denies hematuria and Denies difficulty urinating Musc Denies back pain and Denies limited range of motion Neuro Denies focal weakness and Denies convulsions Psych Denies depression and Denies mood swings Physical Exam Vital Signs: BMI result Body Mass Index 26.6 Const General: comfortable and no acute distress Orientation/consciousness: patient oriented x3 Neck Neck: Yes no lymphadenopathy Resp Auscultation: clear to auscultation bilaterally Cardio Rhythm: regular rhythm GI Other: Rectal exam shows large internal external hemorrhoidal column on the left, smaller column on the right Palpation (GI): Soft to palpation, nontender and no guarding Neuro General: patient oriented x3 Office Procedures Anoscopy He was in kneeling isma-knife position. The anoscope was gently inserted. A full examination of the anal canal was done. He has this large internal external hemorrhoidal column of the left which seemed to prolapse easily. There was a smaller hemorrhoidal column on the right side also a mix of internal external. There were no other lesions. There was no fissure ulceration. There was no induration. There was no active bleeding. [id number] Assessment & Plan Assessment & Plan (1) Prolapsed hemorrhoids: Code(s): K64.8 - Other hemorrhoids Category: Medical Plan: He has a large hemorrhoidal column on the left posterior with note of frequent prolapse of the internal component. I explained to him the technique of exam under anesthesia and hemorrhoidectomy. I reviewed the risks including but not limited to bleeding, infections, postop pain and poor healing, as well as the benefits and alternatives. I reviewed with him what to expect postoperatively. He says that he is ?sick and tired? of his long history of hemorrhoid issues and wants to proceed with surgery. Coding Level of Care Code New Pt Level 3 (12519) Diagnoses Prolapsed hemorrhoids K64.8 CPT Codes Details - CPT: 56632-[id number] ([id number])
[2025-01-16 10:46] VITALS: BMI 26.6
--- OUTSIDE RECORDS SUMMARY | 2025-01-16 12:54 | XMS_ITS | Encounter Summary ---
Author Organization [employer] Address [address] [place] [address] 7t [place] [address] Care Team Providers Care Paint Formulator Name Role Phone Eliseo Redmond MD Primary Care Prov ider Reason for Visit * Reason Onset Date Comments Hospital Follow-up 04/26/2023 Encounter Details Date Type Department Care Team (Late Contact Info) Description 04/26/2023 Telephone [facility] [address] [place], [place] [phone] Eliseo Redmond MD [address] [place], [place] [phone] Hospital Follow-up Social History Tobacco Use Types [...] from pt requesting a HDF appt. Hospital: [facility] Date of admission: 04/24/23 Discharge date: 04/26/23 Diagnosed: Head injury documented in this encounter Plan of Treatment Upcoming Encounters Date Type Department Care Team (Late Contact Info) Description 03/05/2025 9:30 AM EST Office Visit [facility] [address] [place], [place] [phone] Eliseo Redmond MD [address] [place] [phone] documented as of this encounter Visit Diagnoses Not on filedocumented in this encounter Care Teams Paint Formulator Relationship Specialty Start Date End Date Eliseo Redmond MD [address] [place] [phone] PCP - General Internal Medicine 07/02/19 documented as of this encounter
--- OUTSIDE RECORDS SUMMARY | 2025-01-16 12:54 | XMS_ITS | Encounter Summary ---
Author Organization [employer] Address [address] [facility] 7t [place] [address] Care Team Providers Care Collaborative Physician Name Role Phone Eliseo Redmond MD Primary Care Prov ider Encounter Details Date Type Department Care Team (Late st Contact Info) Description 01/11/2025 Orders Only [facility] [address] [facility], [place] [phone] Eliseo Redmond MD [address] [place], [place] [phone] Type 2 diabetes mellitus without complication, with long-term current use of insulin ([facility]) (Primary Dx) Social History Tobacco Use Types Packs/Day Years Used Date Smoking Tobacco: Every Day Cigarettes Passive Smoke Exposure: Current Smokeless Tobacco: Never Depression Answer Date Recorded Patient Health Questionnaire-9 Score 0 05/03/2023 Patient Health Questionnaire-9 Score 0 05/03/2023 Last PHQ-9: Questionnaire Data Not on file 0 05/03/2023 Housing Stability Answer Date Recorded What is your housing situation today? I have sugar brock 05/03/[address] you li [...] AM EDT documented as of this encounter Plan of Treatment Upcoming Encounters Date Type Department Care Team (Late st Contact Info) Description 03/05/2025 9:30 AM EST Office Visit [facility] [address] [place], [place] [phone] Eliseo Redmond MD [address] [place] [address] Scheduled Orders Name Type Priority Associated Diagnoses Orde r Schedule Hemoglobin A1c Lab Routine Type 2 diabetes mellitus without complication, with long-term current use of insulin (HCC) Expected: 01/11/2025 (Approximate), Expires: 01/11/2026 documented as of this encounter Goals Goal Patient Goal Type Associated Problems Recent Progress Patient-Stated? Author Help patients manage their type 2 diabetes Care Plan Help patients manage their type 2 diabetes No Eliseo Redmond MD Patient has chronic kidney disease Care Plan Patient has chronic kidney disease No Eliseo Redmond MD documented as of this encounter Visit Diagnoses Diagnosis Type 2 diabetes mellitus without complication, with long-term current use of insulin (HCC)- Primary documented in this encounter Additional Health Concerns Active Problems Noted Date Diagnosed Date Help patients manage their type 2 diabetes 01/11 Patient has chronic kidney disease 01/11/2025 Assessment Noted Time PHQ-9 Depression Total Score: 0 05/03/19 24 10:25 AM EDT documented as of this encounter Care Teams Collaborative Physician Relationship Specialty Start Date End Date Eliseo Redmond MD [address] [place] [address] PCP - General Internal Medicine 07/02/19 documented as of this encounter
--- OUTSIDE RECORDS SUMMARY | 2025-01-16 12:54 | XMS_ITS | Clinical Summary ---
Author Organization [facility] Address [address] [facility] [address] [place] [address] Care Team Providers Care Licensing Specialist Name Role Phone Eliseo Redmond MD Primary Care Prov ider Allergies Active Allergy Reactions Criticality Noted Date Comments Bee Venom 06/15/2018 Medications Continuous Glucose Beauty Sales Consultant (FreeStyle Ced [address] [place]) device Scan sensor every 8 hours 1 each 4 Active Blood Pressure kit 1 kit Once per day. 1 kit 4 Active Continuous Glucose Sensor (FreeStyle Ced 2 Sensor) [facility] [place] 1 sensor every [...] Encounters Date Type Department Care Team Description 01/11/2025 Orders Only [facility] [address] [place] [address] Eliseo Redmond MD Type 2 diabetes mellitus without complication, with long-term current use of insulin (HCC) (Primary Dx) 12/07/2024 11:20 AM EDT Office Visit [facility] [address] [place] [phone] Kenn Woods MD Constipation, unspecified constipation type (Primary Dx); Rectal prolapse 12/07/2024 Travel 12/07/[address] [phone] Eliseo Redmond MD Nurse Triage 11/23/2024 8:45 AM EDT Telemedicine [facility] [address] [place] [address] Eliseo Redmond MD Digital mucinous cyst of finger (Primary Dx) 11/23/2024 Telephone [facility] [address] [place] [address] Eliseo Redmond MD 11/23/2024 Travel 11/22/2024 Telephone [facility] [address], [place] [phone] Eliseo Redmond MD chart prep 11/21/[address] [phone] Eliseo Redmond MD Referral 11/21/[address] [phone] Eliseo Redmond MD Results from Last 3 [...] 12/07/2024 10:43 AM EDT Plan of Treatment Upcoming Encounters Date Type Department Care Team (Late st Contact Info) Description 03/05/2025 9:30 AM EST Office Visit [facility] [address], [place] [phone] Eliseo Redmond MD [address] [place], [place] [phone] Health Maintenance Due Date Last Done Comments [...] 07/20/2019 07/19/2018 Diabetes: Hemoglobin A1C 03/31/2024 09/29/2023, 0403/2023 Depression Screening 05/02/2024 05/03/2023, 05/03/19 24 SDOH Screening 05/02/2024 05/03/2023 Lipid Panel 05/03/2024 05/04/2023, 04/15/2021 Diabetes: Foot Exam 06/02/2024 06/03/2023, 06/03/2023, 06/03/2023, Additional history exists Diabetes: Urine Protein Screening 06/02/2024 06/03/2023, 04/15/2021 COVID-19 Vaccine ( - 2024- season) 2024 Influenza Vaccine (#1) 2024 Tobacco [...] on patient's age to complete this topic Goals Goal Patient Goal Type Associated Problems Recent Progress Patient-Stated? Author Help patients manage their type 2 diabetes Care Plan Help patients manage their type 2 diabetes Eliseo Deleon MD Patient has chronic kidney disease Care Plan Patient has chronic kidney disease No Eliseo Redmond MD Procedures Procedure Name Priority Date/Time Associated Diagnosis Comments POCT GLYCATED HEMOGLOBIN, TOTAL Routine 09/29/2023 9:00 AM EDT Type 2 diabetes mellitus without complication, with long-term current use of insulin (CMS/HCC) ALBUMIN, RANDOM URINE W/CREATININE Routine 06/03/2023 9:37 AM EDT Fall, subsequent encounter HEPATITIS C AB W/REFL TO HCV RNA, QN, PCR Routine 05/04/2023 8:22 AM EDT Type 2 diabetes mellitus without complication, with long-term current use of insulin ([facility]) LIPID PANEL, STANDARD Routine 05/04/2023 8:22 AM EDT Type 2 diabetes mellitus without complication, with long-term current use of insulin (CMS[facility]) HIV 1/2 ANTIGEN/ANTIBODY, FOURTH GENERATION W/RFL Routine 04/15/2021 8:38 AM EST from Last 3 Months or Most Recently Relevant to Health Maintenance Results * (ABNORMAL) POCT HGB A1C (09/29/2023 9:00 AM EDT) Hemoglobin A1C 6.1(A) 4.0 - 6.0 % QC Media Lot # [id number] Lot# Expiration Date , Blood 09/29/2023 9:00 AM EDT Eliseo Wright MD POINT OF CARE TEST ENTER/EDIT ORDERABLES Final Result * Albumin, Random Urine W/Creatinine (06/03/2023 9:37 AM EDT) Creatinine, Urine 123.85 mg/dL [facility] Microalbumin Urine 6.0 mg/L [facility] Microalbum Creatinine Ratio Ur 4.8 <30 ug/mg cr [facility] Comment:Albumin/Creatinine R atio Reference Ranges: Normal: < 30 ug/mg creatinine Microalbuminuria: 30 - 300 ug/mg creatinineClinical Albuminuria: > 300 ug/mg creatinine 06/03/2023 9:37 AM EDT 06/03/2023 2:30 PM EDT Eliseo Wright MD LAB URINE ORDERABL ES Final Result Performing Organization Address [facility] Co de Phone Number [facility] [address] [place] [phone] * Hepatitis C Antibody with Reflex to HCV, RNA, Quantitative, Real-Time PCR (05/04/2023 8:22 AM EDT) Hepatitis C Antibody Nonreactive Nonreactive [facility] Comment:Antibodies to HCV no t detected; does not exclude early acuteHCV infection. Blood Venous blood specimen / Unknown 05/04/2023 8:22 AM EDT 05/04/2023 2:10 PM EDT us Eliseo Wright MD LAB BLOOD ORDERABL ES Final Result Performing Organization Address City/[facility]/ZIP Co de Phone Number [facility] [address] [place] [phone] * (ABNORMAL) Lipid Panel, Standard (05/04/2023 8:22 AM EDT) Triglycerides 45 <150 mg/dL [facility] Comment:Desirable Triglyceri de: less than 150 mg/dLBorderline High Triglyceride 150-199 mg/dLHigh Triglyceride: 200-499 mg/dLVery High Triglyceride: greater than or equal to 5OO mg/dL Cholesterol 135 <200 mg/dL [facility] Comment:Desirable Cholestero l: less than 200 mg/dLBorderline High Cholesterol: 200-239 mg/dLHigh Cholesterol: greater than 239 mg/dL LDL Cholesterol Calculated 91 <100 mg/dL [facility] Comment:Desirable LDL: less than 100 mg/dLNear Optimal/Above Optimal LDL: 110- 129 mg/dLBorderline High LDL: 130-159 mg/dLHigh LDL: 160-189 mg/dLVery High LDL: greater than or equal to 190 mg/dL HDL Cholesterol 35(L) >40 mg/dL [facility] Comment:Desirable HDL: great er than 40 mg/dL Note: This HDL assay may give artificially low results in patients with liver disease. Blood Venous blood specimen / Unknown 05/04/2023 8:22 AM EDT 05/04/2023 2:10 PM EDT Eliseo Wright MD LAB BLOOD ORDERABL ES Final Result [facility] [address] [place] [phone] * HIV 1/2 ANTIGEN/ANTIBODY,FOURTH GENERATION W/RFL (04/15/2021 8:38 AM EST) [facility] HIV-1/2 ANTIGEN AND ANTIBODIES, 4TH GENERATION W/ REFLEX NON-REACT ABRAM NON-REACT ABRAM [facility] Comment: HIV-1 antigen and HIV-1/HIV-2 [...] purpose. For additional information please refer to http://education.[employer]/faq/ODO626 (This link is being provided for informational/ educational purposes only.) The performance of this assay has not been clinically validated in patients less than 2 years old. HIV-1/2 ANTIGEN AND ANTIBODIES, 4TH GENERATION W/ REFLEX NON-REACT ABRAM NON-REACT ABRAM [facility] Comment: HIV-1 antigen and HIV-1/HIV-2 [...] purpose. For additional information please refer to http://education.[employer]/faq/LDI235 (This link is being provided for informational/ educational purposes only.) The performance of this assay has not been clinically validated in patients less than 2 years old. 04/15/2021 8:38 AM EST us Baljit Rebollar MD LAB BLOOD ORDERABLES Final Resul t [facility] [address] from Last 3 Months or Most Recently Relevant to Health Maintenance Additional Health Concerns Active Problems Noted Date Diagnosed Date Help patients manage their type 2 diabetes 01/11 Patient has chronic kidney disease 01/11/2025 Insurance [facility] STAND ADULT # [address] [place] [id number] # [address] [place] [id number] # 2 [place] [id number] Care Teams Licensing Specialist Relationship Specialty Start Date End Date Eliseo Redmond MD [address] [place] [address] [place] [id number] PCP - General Internal Medicine 07/02/19
== END 2025-01-16 11:03 | disposition home or self-care (01) ==
LOC: HO.HGS 10:42
PROVIDERS: PCP Internal Medicine; Visit Provider Surgery
DX: K64.8 Other hemorrhoids (principal)
CPT/HCPCS: 46600; 99203

== ENCOUNTER → 2025-01-16 10:41 | Outpatient (BNVA) | payer OTHER, SELFPAY | PROVIDERS: PCP Internal Medicine; Visit Provider Surgery | DX: K64.8 Other hemorrhoids (principal) | CPT/HCPCS: 46600 ==